=== PATIENT | female | born 1950 | race Caucasian/White ===

== ENCOUNTER 2023-07-14 13:43 | Emergency (ER) | payer OTHER, SELFPAY ==
[2023-07-14 13:55] VITALS: BP 118/78
[2023-07-14 14:23] LABS: % Basophils 0.9 % (0-2); % Eosinophils 1.1 % (0-6); % Immature Granulocytes 0.5 % (0-0.5); % Lymphocytes 42.5 % (20.5-51.1); % Monocytes 9.5 % (1.7-9.3); % Neutrophils 45.5 % (42.2-75.2); Absolute Basophils 0.1 10^3/uL (0-0.2); Absolute Eosinophils 0.1 10^3/uL (0-0.7); Absolute Lymphocytes 2.4 10^3/uL (1.2-3.4); Absolute Monocytes 0.5 10^3/uL (0.1-0.6); Absolute Neutrophils 2.5 10^3/uL (1.4-6.5); Hematocrit 40.7 % (37.0-47.0); Hemoglobin 13.1 g/dL (12.0-16.0); Mean Corp Hgb Conc. 32.2 g/dL (33.0-37.0); Mean Corpuscular Hgb 27.7 pg (27.0-31.0); Mean Platelet Volume 10.9 fL (7.4-10.4); Nucleated Red Blood Cells % 0 %; Platelet Count 256 10^3/uL (130-400); Red Blood Cell Count 4.73 10^6/uL (4.20-5.40); Red Cell Dist. Width 13.6 % (11.5-14.5); White Blood Cell Count 5.6 10^3/uL (4.8-10.8)
[2023-07-14 14:32] LABS: ALT (SGPT) 27 U/L (0-35); AST (SGOT) 28 U/L (14-36); Albumin 4.4 g/dl (3.5-5.0); Alkaline Phosphatase 63 U/L (38-126); Blood Urea Nitrogen 13 mg/dl (7-17); Calcium 9.1 mg/dl (8.4-10.2); Carbon Dioxide 27 mmol/L (22-30); Chloride 104 mmol/L (98-107); Glucose 87 mg/dl (70-99); Potassium 4.3 mmol/L (3.5-5.1); Sodium 137 mmol/L (135-145); Total Bilirubin 0.6 mg/dl (0.2-1.3); eGFR > 60.00
[2023-07-14 16:51] VITALS: BP 139/64
[2023-07-14 16:53] VITALS: BMI 24.2
--- NOTE | 2023-07-14 17:08 | ED.GENMED ---
History of Present Illness
General
Chief Complaint: Weakness
Source: family
Exam Limitations: none
Time Seen by Provider: 07/14/23 16:34
Nursing documentation reviewed up to this point in time: agreed with
Travel History
Have you had any contact with someone who has COVID-19?: No
Do you have any symptoms of coronavirus? Fever > 100 degrees, chills, cough, shortness of breath, sore throat, loss of taste or smell, muscle aches, or headache?: No
History of Present Illness
History of Present Illness:
Patient is a 72-year-old female [place]er-speaking brought by family for evaluation. Patient complains of generalized weakness for the past 1 week. She felt that she had a bad cold however she denies any actual cold symptoms. She denies any runny
nose cough nasal congestion fever chills. She describes generalized weakness. She has hx of mengioma as per family, afib/htn on eliqus. She denies any dark/black stool. Denies any nausea vomiting. She has not had a good appetite.
Patient presents with paperwork from [facility] which states the patient was hospitalized in March for elevated blood pressure and she was sent home on blood pressure medication. She did have an MRI of the brain with on paperwork
does a meningioma of the right frontal lobe
Review of Systems
Review of Systems
Allergies reviewed?: Yes
Other source history: family
All Other Systems: ROS reviewed and negative except as documented in HPI and ROS
Constitutional: Reports other (feels weak ; good appetite ); Denies fever, fatigue or chills
EENT: Reports no symptoms
Respiratory: Reports no symptoms; Denies trouble breathing
Cardiac: Reports no symptoms; Denies chest pain, diaphoresis, palpitations or syncope
ABD/GI: Reports no symptoms; Denies abdominal pain, nausea or vomiting
: Reports no symptoms
Musculoskeletal: Reports no symptoms
Skin: Reports no symptoms
Neurological: Reports no symptoms; Denies dizzy, headache or numbness
Hematologic/Lymphatic: Reports no symptoms
Psychiatric: Reports no symptoms
Phy Exam
General Physical Exam
General Presentation: no apparent distress
General age: appears stated age
General Skin: warm and dry
General Habitus: elderly
General Mental: alert
General Hydration: appears well hydrated
Cardiovascular Exam
Cardiovascular Exam: regular rate/rhythm, no murmur and normal peripheral pulses
Pulmonary Exam
Pulmonary Exam: lungs clear and no respiratory distress
Gastrointestinal Exam
Gastrointestinal Exam: normal bowel sounds, non tender and soft
Neurological Exam
Neurological Exam: alert and oriented x3
Musculoskeletal Exam
Musculoskeletal Exam: full ROM
Skin Exam
Skin Exam: normal color and warm/dry
Psychiatric Exam
Psychiatric Exam: normal mood/affect
Course
Orders/Labs/Results
Orders:
Orders
07/14/23 14:02
Electrocardiogram (*1) Urgent
Reason for Study: Fatigue / Weakness
EKG- Treatment ONCE
07/14/23 14:13
Complete Blood Count/With Diff Urgent
Comprehensive Metabolic Panel Urgent
07/14/23 16:58
COVID-19 Antigen Urgent
Source: Nasal Swab
Urinalysis Reflex To Culture Urgent
Date Specimen was Collected: 07/14/23
Time Specimen was Collected: 16:56
Influenza A+B Rapid Molecular Urgent
PREMA Source: Nasal Swab
Specimen Description:
Date Specimen was Collected: 07/14/23
Time Specimen was Collected: 16:56
Abnormal Lab Results
07/14/23 07/14/23
14:13 16:58
MCHC 32.2 L g/dL
(33.0-37.0)
MPV 10.9 H fL
(7.4-10.4)
Monocytes % 9.5 H %
(1.7-9.3)
Urine Ketones 1+ A
(Negative)
07/14/23 14:13
07/14/23 14:13
Vital Signs
Initial and Last Documented VS:
Initial Vital Signs
Temp Pulse Resp BP Pulse Ox
98.0 F 65 16 118/78 99
07/14/23 13:55 07/14/23 13:55 07/14/23 13:55 07/14/23 13:55 07/14/23 13:55
Last Documented Vital Signs
Temp Pulse Resp BP Pulse Ox
98.0 F 64 17 137/66 97
07/14/23 13:55 07/14/23 19:09 07/14/23 19:09 07/14/23 19:00 07/14/23 19:09
Faculty Member consulted with Physician
Faculty Member consulted with physician?: Yes
Name of Physician Consulted: Sridhar
MDM/Problems Addressed
Differential Diagnosis Includes:
Not limited to dehydration, infection, UTI, anemia
MDM/Problems Addressed:
Patient is a 72-year-old female that was brought by family for evaluation. Patient complains of feeling weak for the past several days�1 week. She initially mention cold symptoms but denies any fever chills nasal congestion cough. She was
recently hospitalized at [facility] March 2023 brought paperwork with her. She was hospitalized for high blood pressure and also found to have a meningioma and is being followed by neurology. She denies any headache. She denies any
difficulty walking. She presents awake alert no acute distress denies any black stool denies any nausea vomiting fever chills chest pain shortness of breath. She presents here awake alert no acute distress well-appearing family at bedside. Vital
signs are stable patient is afebrile with a normal white count stable hemoglobin of 13.1 normal chemistries negative COVID-negative flu and normal EKG. Patient nontoxic-appearing Case discussed ED physician CAT scan had not performed as patient has
no complaints of headache recently had an MRI [place] in March normal neurologic exam. will DC with outpatient follow-up family doctor
*Pulse Oximetry
Patient hypoxic: no
*EKG
Interpreted by ED Provider?: Yes
Heart Rate: 61
Rate: normal
Rhythm: sinus
Ischemia: no ischemia
*Critical Care Note
Total Time (30-74mins, 75-104mins- exclusive of procedures): Not Applicable
ED Attending Note
-
Portions of this chart may have been created with voice recognition software.� Occasional wrong word or��sound alike� substitutions may have occurred due to the inherent limitations of voice recognition software.
Discharge Plan
Departure
Patient Disposition: Home (Routine Discharge)
Date of Disposition: 07/14/23
Time of Disposition: 19:11
Patient with high blood pressure during this ER visit?: Yes
Condition: Fair
Covid-19: Not Applicable
Discharge Problem:
Weakness
Instructions: Generalized Weakness (DC), BLOOD PRESSURE
Referrals:
Anyi Kapadia MD [Family Provider] -
Activity Restrictions/Additional Instructions:
Follow-up with family doctor the next several days for reevaluation of your symptoms. reTurn if any worsening of symptoms.
Interventions
Interventions:
*General Assessment Last Done: 07/14/23 17:03
*Neglect/Abuse Screening Last Done: 07/14/23 17:03
*ED COVID-19 Vaccine History Last Done: 07/14/23 13:55
ED- Cardiac Assessment Last Done: 07/14/23 17:04
ED- Neurological Assessment Last Done: 07/14/23 17:04
ED- Pulmonary Assessment Last Done: 07/14/23 17:04
Discharge Date and Time
Print Language: CHADIAN
[2023-07-14 17:23] LABS: COVID-19 Antigen Negative (Negative)
[2023-07-14 17:34] LABS: Urine Albumin Negative (Neg - Trace); Urine Bilirubin Negative (Negative); Urine Character Clear (Clear); Urine Color Yellow; Urine Glucose Negative (Negative); Urine Ketone 1+ (Negative); Urine Leukocyte Negative (Negative); Urine Nitrite Negative (Negative); Urine Occult Blood Negative (Negative); Urine Specific Gravity 1.015 (<1.030); Urine Urobilinogen Negative (Neg - 1+)
[2023-07-14 18:00] VITALS: BP 138/74
[2023-07-14 19:00] VITALS: BP 137/66
== END 2023-07-14 19:50 | disposition home or self-care (01) ==
LOC: EMR 13:43
PROVIDERS: Nurse Practitioner; Student in an Organized Health Care Education/Training Program; EMERGENCY PHYSICIAN Emergency Medicine; FAMILY PHYSICIAN Internal Medicine
DX: R53.1 Weakness (principal); I10 Essential (primary) hypertension; Z11.52 Encounter for screening for COVID-19; Z79.01 Long term (current) use of anticoagulants
CPT/HCPCS: 99284; 80053; 81003; 85025; 87502; 87811; 93005